=== PATIENT | female | born 1980 | race Caucasian/White ===

== ENCOUNTER 2018-05-13 04:06 | Emergency (ER) | payer OTHER ==
[~2018-05-13] VITALS: Ht 157.5 cm; Wt 59.1 kg
[~2018-05-13 04:06] MED LIST: ALBUTEROL0.83 MG/ML IH; AMOXICILLIN 50500 MG PO; IBUDONE PO; MOTRIN 800800 MG/TAB PO; NO HOME MEDICATIONS; NORCO 325 MG-101 TAB; NORCO 325 MG-7.1 TAB PO; NORCO PO; PHENERGAN W/CO120 ML PO; PREDNISONE 20MG20 MG PEG; PROVENTIL0.09 MG/A1 IH; ROBAXIN 50500 MG/TAB PO; ROBAXIN500 MG PO; ZITHROMAX Z PA250 MG PO
[2018-05-13 04:12] VITALS: TEMP 98.3
[2018-05-13 04:35] LABS: BASO # 0.1 (0.0-0.2); BASO % 0.6 % (0.0-2.0); EOS # 0.3 (0.0-0.7); EOS % 3.2 % (0-4.0); GRAN # 6.5 (1.4-6.5); GRAN % 67.5 % (42.2-75.2); HEMATOCRIT 46.2 % (37.0-47.0); HEMOGLOBIN 15.6 g/dl (12.5-16.0); LYMPH # 1.9 (1.2-3.4); MEAN CELL VOLUME 91 fl (80.0-100.0); MEAN CORPUSCULAR HEMOGLOBIN 31 pg (27.0-31.0); MEAN CORPUSCULAR HGB CONC 34 g/dl (33.0-37.0); MEAN PLATELET VOLUME 9.8 fl (7.4-10.4); MONO # 0.8 (0.1-0.6); MONO % 8.3 % (1.7-9.3); PLATELET COUNT 361 K/mm3 (130-400); RED BLOOD COUNT 5.07 M/mm3 (4.10-5.30); REDCELL DISTRIBUTION WIDTH-CV 13.1 % (11.5-14.5)
[2018-05-13 04:48] LABS: ALANINE AMINOTRANSFERASE 17 U/L (9-52); ALBUMIN 4.1 gm/dL (3.5-5.0); ALKALINE PHOSPHATASE 80 U/L (50-136); ANION GAP 6 mmol/L (7-16); AST,SGOT 16 U/L (15-37); BILIRUBIN,TOTAL 0.4 mg/dL (0.0-1.0); BLOOD UREA NITROGEN 14 mg/dL (7-17); CALCIUM 9.4 mg/dL (8.4-10.2); CARBON DIOXIDE 27 mmol/L (22-30); CHLORIDE 106 mmol/L (98-107); CREATININE, serum 0.84 mg/dL (0.52-1.25); GLUCOSE 101 mg/dL (74-106); LIPASE 156 U/L (23-300); POTASSIUM 4.1 mmol/L (3.4-5.0); SODIUM 139 mmol/L (137-145)
[2018-05-13] MEDS ORDERED: KLONOPIN 1MG1 MG PO (04:58)
[2018-05-13] MEDS ORDERED: FLEXERIL 1010 MG/TAB PO (04:58)
[2018-05-13] MEDS ORDERED: DAZIDOX20 MG PO (04:58)
[2018-05-13 04:59] LABS: C-REACTIVE PROTEIN < 0.5 mg/dL (0.0-0.9); TROPONIN-I < 0.012 ng/mL (0.000-0.034)
[2018-05-13 05:53] LABS: COLLECTION METHOD CLEAN CATCH
[2018-05-13 06:03] LABS: MUCOUS Present /lpf; PH 7 (5-8); URINE APPEARANCE Clear; URINE BACTERIA None Seen /hpf; URINE BILIRUBIN Negative (NEGATIVE); URINE BLOOD Negative (NEGATIVE); URINE COLOR Yellow; URINE GLUCOSE Negative (NEGATIVE); URINE KETONE Negative (NEGATIVE); URINE LEUKOCYTE ESTERASE Negative (NEGATIVE); URINE NITRATE Negative (NEGATIVE); URINE PROTEIN(semi-quant) Negative (NEGATIVE); URINE RBC 0-2 /hpf; URINE UROBILINOGEN Negative (NEGATIVE)
[2018-05-13 12:37] VITALS: BP 112/60; PULSE 88
== END 2018-05-13 12:38 | disposition home or self-care (01) ==
LOC: COL.ER 04:06
PROVIDERS: Emergency Medicine
DX: R10.11 Right upper quadrant pain (principal); F17.210 Nicotine dependence, cigarettes, uncomplicated; Z98.51 Tubal ligation status
CPT/HCPCS: J0780; J1170; J7030; Q9967

== ENCOUNTER 2018-06-14 21:14 | Emergency (ER) | payer SELFPAY ==
[~2018-06-14 21:14] MED LIST changes: +DAZIDOX20 MG PO; +FLEXERIL 1010 MG/TAB PO; +KLONOPIN 1MG1 MG PO
[2018-06-14 22:08] LABS: BASO # 0.1 (0.0-0.2); BASO % 0.4 % (0.0-2.0); EOS % 0.2 % (0-4.0); GRAN # 13.3 (1.4-6.5); GRAN % 79.8 % (42.2-75.2); HEMATOCRIT 44.9 % (37.0-47.0); HEMOGLOBIN 15.5 g/dl (12.5-16.0); LYMPH # 1.9 (1.2-3.4); LYMPH % 11.2 % (20.0-51.0); MEAN CELL VOLUME 91 fl (80.0-100.0); MEAN CORPUSCULAR HEMOGLOBIN 31 pg (27.0-31.0); MEAN CORPUSCULAR HGB CONC 35 g/dl (33.0-37.0); MEAN PLATELET VOLUME 9.6 fl (7.4-10.4); MONO # 1.3 (0.1-0.6); MONO % 8.1 % (1.7-9.3); PLATELET COUNT 355 K/mm3 (130-400); RED BLOOD COUNT 4.93 M/mm3 (4.10-5.30); REDCELL DISTRIBUTION WIDTH-CV 12.7 % (11.5-14.5)
[2018-06-14 22:21] LABS: ALANINE AMINOTRANSFERASE 17 U/L (9-52); ALBUMIN 4.2 gm/dL (3.5-5.0); ALKALINE PHOSPHATASE 93 U/L (50-136); ANION GAP 11 mmol/L (7-16); AST,SGOT 45 U/L (15-37); BILIRUBIN,TOTAL 1.1 mg/dL (0.0-1.0); BLOOD UREA NITROGEN 18 mg/dL (7-17); CALCIUM 9.4 mg/dL (8.4-10.2); CARBON DIOXIDE 26 mmol/L (22-30); CHLORIDE 100 mmol/L (98-107); GLUCOSE 98 mg/dL (74-106); POTASSIUM 4.2 mmol/L (3.4-5.0); SODIUM 137 mmol/L (137-145); TOTAL PROTEIN 7.4 gm/dL (6.4-8.2)
[2018-06-14 22:23] LABS: ACETAMINOPHEN < 10 ug/mL (10-30); ALCOHOL(ethanol),MEDICAL < 10 mg/dL; SALICYLATE < 1.0 mg/dL
[2018-06-14 22:24] VITALS: TEMP 97
[2018-06-14 23:25] LABS: COLLECTION METHOD CLEAN CATCH
[2018-06-14 23:37] LABS: MUCOUS Present /lpf; PH 5 (5-8); URINE APPEARANCE Cloudy; URINE BACTERIA None Seen /hpf; URINE BILIRUBIN Negative (NEGATIVE); URINE BLOOD 3+ (NEGATIVE); URINE COLOR Yellow; URINE GLUCOSE Negative (NEGATIVE); URINE KETONE 1+ (NEGATIVE); URINE LEUKOCYTE ESTERASE Negative (NEGATIVE); URINE NITRATE Negative (NEGATIVE); URINE PROTEIN(semi-quant) 2+ (NEGATIVE); URINE RBC >50 /hpf; URINE UROBILINOGEN Negative (NEGATIVE)
[2018-06-14 23:38] LABS: TRICYCLIC ANTIDEPRESS URINE NEGATIVE
[2018-06-15 11:38] VITALS: BP 122/86; PULSE 86
== END 2018-06-15 11:39 | disposition home or self-care (01) ==
LOC: COL.ER 21:14
PROVIDERS: Family Medicine
DX: F29 Unspecified psychosis not due to a substance or known physiological condition (principal); Z90.89 Acquired absence of other organs

== ENCOUNTER 2018-09-25 09:45 | Emergency (ER) | payer SELFPAY ==
[~2018-09-25] VITALS: Ht 152.4 cm; Wt 45.5 kg
[2018-09-25 09:51] VITALS: TEMP 98
[2018-09-25 11:00] LABS: COLLECTION METHOD RANDOM VOIDED
[2018-09-25 11:08] LABS: BASO # 0.1 (0.0-0.2); BASO % 0.6 % (0.0-2.0); EOS # 0.2 (0.0-0.7); EOS % 2.3 % (0-4.0); GRAN # 5.3 (1.4-6.5); GRAN % 61.8 % (42.2-75.2); HEMATOCRIT 46.3 % (37.0-47.0); HEMOGLOBIN 15.5 g/dl (12.5-16.0); LYMPH # 2.3 (1.2-3.4); MEAN CELL VOLUME 92 fl (80.0-100.0); MEAN CORPUSCULAR HEMOGLOBIN 31 pg (27.0-31.0); MEAN CORPUSCULAR HGB CONC 34 g/dl (33.0-37.0); MEAN PLATELET VOLUME 9.8 fl (7.4-10.4); MONO # 0.7 (0.1-0.6); PLATELET COUNT 323 K/mm3 (130-400); RED BLOOD COUNT 5.04 M/mm3 (4.10-5.30); REDCELL DISTRIBUTION WIDTH-CV 12.6 % (11.5-14.5)
[2018-09-25 11:11] LABS: MUCOUS Present /lpf; PH 5 (5-8); URINE APPEARANCE Hazy; URINE BACTERIA None Seen /hpf; URINE BILIRUBIN Negative (NEGATIVE); URINE BLOOD Negative (NEGATIVE); URINE COLOR Amber; URINE GLUCOSE Negative (NEGATIVE); URINE KETONE Trace (NEGATIVE); URINE LEUKOCYTE ESTERASE Negative (NEGATIVE); URINE NITRATE Negative (NEGATIVE); URINE PROTEIN(semi-quant) 1+ (NEGATIVE); URINE UROBILINOGEN Negative (NEGATIVE)
[2018-09-25 11:20] LABS: ALANINE AMINOTRANSFERASE 13 U/L (9-52); ALBUMIN 4.4 gm/dL (3.5-5.0); ALKALINE PHOSPHATASE 91 U/L (50-136); ANION GAP 13 mmol/L (7-16); AST,SGOT 24 U/L (15-37); BILIRUBIN,TOTAL 1.3 mg/dL (0.0-1.0); BLOOD UREA NITROGEN 16 mg/dL (7-17); CALCIUM 9.6 mg/dL (8.4-10.2); CARBON DIOXIDE 25 mmol/L (22-30); CHLORIDE 102 mmol/L (98-107); CREATININE, serum 0.75 (0.52-1.25); GLUCOSE 132 mg/dL (74-106); POTASSIUM 3.5 mmol/L (3.4-5.0); SODIUM 140 mmol/L (137-145); TOTAL PROTEIN 7.8 gm/dL (6.4-8.2)
[2018-09-25 11:21] LABS: ACETAMINOPHEN < 10 ug/mL (10-30); ALCOHOL(ethanol),MEDICAL < 10 mg/dL; SALICYLATE < 1.0 mg/dL
[2018-09-25 11:30] LABS: TRICYCLIC ANTIDEPRESS URINE NEGATIVE
[2018-09-25 22:31] VITALS: BP 102/66; PULSE 71
== END 2018-09-26 03:42 | disposition home or self-care (01) ==
LOC: COL.ER 09:45
PROVIDERS: Family Medicine
DX: R45.851 Suicidal ideations (principal); F15.10 Other stimulant abuse, uncomplicated; F32.9 Major depressive disorder, single episode, unspecified
CPT/HCPCS: J1200; J1630

== ENCOUNTER 2018-11-26 15:26 | Emergency (ER) | payer SELFPAY ==
[~2018-11-26] VITALS: Ht 157.5 cm; Wt 45.5 kg
[2018-11-26 15:42] VITALS: BP 134/97; TEMP 97.2
[2018-11-26 16:39] VITALS: PULSE 93
== END 2018-11-26 16:39 | disposition home or self-care (01) ==
LOC: COL.ER 15:26
DX: M54.5 Low back pain (principal); G89.29 Other chronic pain; F17.210 Nicotine dependence, cigarettes, uncomplicated; Z76.0 Encounter for issue of repeat prescription; Z98.51 Tubal ligation status; Z98.890 Other specified postprocedural states

== ENCOUNTER 2018-12-18 02:40 | Emergency (ER) | payer SELFPAY ==
[~2018-12-18] VITALS: Ht 152.4 cm; Wt 45.5 kg
[2018-12-18 03:26] LABS: BASO # 0.1 (0.0-0.2); BASO % 0.6 % (0.0-2.0); EOS # 0.1 (0.0-0.7); EOS % 1.1 % (0-4.0); GRAN # 7.6 (1.4-6.5); GRAN % 70.6 % (42.2-75.2); HEMOGLOBIN 17.5 g/dl (12.5-16.0); LYMPH # 2.2 (1.2-3.4); LYMPH % 20.7 % (20.0-51.0); MEAN CELL VOLUME 92 fl (80.0-100.0); MEAN CORPUSCULAR HEMOGLOBIN 31 pg (27.0-31.0); MEAN CORPUSCULAR HGB CONC 34 g/dl (33.0-37.0); MEAN PLATELET VOLUME 9.9 fl (7.4-10.4); MONO # 0.7 (0.1-0.6); MONO % 6.6 % (1.7-9.3); PLATELET COUNT 474 K/mm3 (130-400); RED BLOOD COUNT 5.67 M/mm3 (4.10-5.30); REDCELL DISTRIBUTION WIDTH-CV 13.4 % (11.5-14.5)
[2018-12-18 03:38] LABS: HEMATOCRIT 52.2 % (37.0-47.0)
[2018-12-18 03:40] LABS: ALANINE AMINOTRANSFERASE 10 U/L (9-52); ALKALINE PHOSPHATASE 97 U/L (50-136); ANION GAP 15 mmol/L (7-16); AST,SGOT 25 U/L (15-37); BILIRUBIN,TOTAL 0.6 mg/dL (0.0-1.0); BLOOD UREA NITROGEN 10 mg/dL (7-17); CALCIUM 10.4 mg/dL (8.4-10.2); CARBON DIOXIDE 24 mmol/L (22-30); CHLORIDE 105 mmol/L (98-107); CREATININE, serum 0.81 (0.52-1.25); GLUCOSE 129 mg/dL (74-106); LIPASE 118 U/L (23-300); POTASSIUM 3.3 mmol/L (3.4-5.0); SODIUM 145 mmol/L (137-145); TOTAL PROTEIN 8.8 gm/dL (6.4-8.2)
[2018-12-18 04:00] LABS: C-REACTIVE PROTEIN < 0.5 mg/dL (0.0-0.9)
[2018-12-18 04:39] LABS: COLLECTION METHOD CLEAN CATCH
[2018-12-18 04:52] LABS: MUCOUS Present /lpf; PH 5 (5-8); SQUAMOUS EPITHELIAL 20-50 /hpf; URINE APPEARANCE Cloudy; URINE BACTERIA Rare /hpf; URINE BILIRUBIN Negative (NEGATIVE); URINE BLOOD 3+ (NEGATIVE); URINE CALCIUM OXALATE CRYSTAL Present /hpf; URINE COLOR Amber; URINE GLUCOSE Negative (NEGATIVE); URINE KETONE Trace (NEGATIVE); URINE LEUKOCYTE ESTERASE Negative (NEGATIVE); URINE NITRATE Negative (NEGATIVE); URINE PROTEIN(semi-quant) 1+ (NEGATIVE)
[2018-12-18 06:43] LABS: TRICYCLIC ANTIDEPRESS URINE NEGATIVE
[2018-12-18 07:35] VITALS: TEMP 98.7
[2018-12-18] MEDS ORDERED: AMOXICILLIN 8751 TAB PO (07:50)
[2018-12-18 08:29] VITALS: BP 106/56; PULSE 82
[2018-12-18] MEDS ORDERED: PHENERGAN 25 TA25 MG PO (12:08)
[2018-12-18] MEDS ORDERED: ZOFRAN ODT8 MG PO (12:08)
== END 2018-12-18 09:16 | disposition home or self-care (01) ==
LOC: COL.ER 02:40
PROVIDERS: Emergency Medicine
DX: K52.9 Noninfective gastroenteritis and colitis, unspecified (principal); F17.210 Nicotine dependence, cigarettes, uncomplicated; Z98.51 Tubal ligation status; Z98.890 Other specified postprocedural states
CPT/HCPCS: A4216; J0696; J1630; J1885; J2270; J2405; J2550; J7030; Q9967

== ENCOUNTER 2018-12-18 11:53 | Inpatient (IN) | payer SELFPAY ==
[~2018-12-18] VITALS: Ht 165.1 cm; Wt 54.6 kg
[~2018-12-18 11:53] MED LIST changes: +AMOXICILLIN 8751 TAB PO
[2018-12-18] MEDS ORDERED: PHENERGAN 25 TA25 MG PO (12:08)
[2018-12-18] MEDS ORDERED: ZOFRAN ODT8 MG PO (12:08)
--- NOTE | 2018-12-18 13:40 | NUR ---
Attempted to draw lab left hand with minimal amount of blood return. Lab here and will draw.
[2018-12-18 14:27] LABS: BASO % 0.3 % (0.0-2.0); EOS % 0.1 % (0-4.0); GRAN # 9.8 (1.4-6.5); GRAN % 80.2 % (42.2-75.2); HEMATOCRIT 41.7 % (37.0-47.0); LYMPH # 1.5 (1.2-3.4); LYMPH % 12.3 % (20.0-51.0); MEAN CELL VOLUME 94 fl (80.0-100.0); MEAN CORPUSCULAR HGB CONC 33 g/dl (33.0-37.0); MEAN PLATELET VOLUME 10.3 fl (7.4-10.4); MONO # 0.8 (0.1-0.6); MONO % 6.8 % (1.7-9.3); RED BLOOD COUNT 4.44 M/mm3 (4.10-5.30); REDCELL DISTRIBUTION WIDTH-CV 13.8 % (11.5-14.5)
[2018-12-18 14:29] LABS: HEMOGLOBIN 13.8 g/dl (12.5-16.0); MEAN CORPUSCULAR HEMOGLOBIN 31 pg (27.0-31.0); PLATELET COUNT 297 K/mm3 (130-400)
[2018-12-18 14:38] LABS: ALBUMIN 3.5 gm/dL (3.5-5.0); BILIRUBIN,TOTAL 0.7 mg/dL (0.0-1.0); CALCIUM 8.4 mg/dL (8.4-10.2); CREATININE, serum 0.6 (0.52-1.25); POTASSIUM 4.3 mmol/L (3.4-5.0); TOTAL PROTEIN 6.4 gm/dL (6.4-8.2)
--- NOTE | 2018-12-18 16:30 | NUR ---
Pt admitted to medical unit rm 315 from ED, resting with eyes closed, awakes briefly to tactile stimuli, falls back to sleep quickly before answering any questions. IV to right hand/wrist patent without s/s of complications. Call light in reach. Bed alarm on.
[2018-12-18 16:35] VITALS: BP 113/57; PULSE 51; TEMP 97.9
[2018-12-18 19:41] VITALS: BP 152/85; PULSE 55; TEMP 99.1
--- NOTE | 2018-12-18 21:00 | NUR ---
Initial shift assessment done-nauseated, vomited small amount bile,acid. States abd pain 5/10- no pain meds ordered- states she needs the Dilaudid like she had in ER. Juliann CHRISTINE called-- pt given Dilaudid and Zofran IV as ordered- NPO. Tele on, LR at 75cc/hr
[2018-12-19] VITALS (8 sets, daily range): BP systolic 111–175; BP diastolic 57–88; PULSE 41–78; TEMP 97.9–99.1
[2018-12-19 06:06] LABS: BASO % 0.4 % (0.0-2.0); GRAN # 7.2 (1.4-6.5); GRAN % 75.7 % (42.2-75.2); HEMATOCRIT 41.2 % (37.0-47.0); HEMOGLOBIN 13.7 g/dl (12.5-16.0); LYMPH # 1.6 (1.2-3.4); LYMPH % 16.4 % (20.0-51.0); MEAN CELL VOLUME 93 fl (80.0-100.0); MEAN CORPUSCULAR HEMOGLOBIN 31 pg (27.0-31.0); MEAN CORPUSCULAR HGB CONC 33 g/dl (33.0-37.0); MEAN PLATELET VOLUME 10.1 fl (7.4-10.4); MONO # 0.7 (0.1-0.6); PLATELET COUNT 320 K/mm3 (130-400); RED BLOOD COUNT 4.43 M/mm3 (4.10-5.30); REDCELL DISTRIBUTION WIDTH-CV 13.6 % (11.5-14.5)
[2018-12-19 06:18] LABS: CALCIUM 8.8 mg/dL (8.4-10.2); CREATININE, serum 0.62 (0.52-1.25); MAGNESIUM 1.7 mg/dL (1.6-2.3); POTASSIUM 3.8 mmol/L (3.4-5.0)
--- NOTE | 2018-12-19 06:34 | NUR ---
Has received Zofran x2 for nausea, and Dilaudid IV x3 for abd pain- no stools during this shift. IV fluids of LR at 75cc/hr.
--- NOTE | 2018-12-19 09:03 | NUR ---
DAVON met with the patient to discuss a discharge plan. The pt lives in [place] with her mom and dad. The pt does not use DME and reports independence with ADLs. The pt's PCP is Dr. Lares from [facility] but would like to find a local doctor. SW provided list of [facility] providers. The pt receives her medication from [facility] with no difficulties. The pt is self-pay. DAVON contacted Katiana, financial counselor. will provide financial assistance application to the pt. The pt does not have advanced directives in the EMR but was interested in obtaining a DPOA-HC form. The pt plans to return home upon discharge with her mom providing transporatation. There are no additional needs at this time.
--- NOTE | 2018-12-19 17:46 | NUR ---
PT HAS BEEN NAUSEATED AND HAD C/O PAIN THROUGHOUT SHIFT. ADMINISTERED ZOFRAN WITHOUT MUCH IMPROVEMENT. PHENAGREN WAS ADMISITERED, PT WAS ABLE TO TAKE A NAP AFTER MED WAS ADMINSTERED. PAIN MEDS WHERE CHANGED A COUPLE TIMES THIS SHIFT DUE TO PT NOT GETTING ANY RELIEF FROM PAIN. ECHO WAS OBTAINED THIS AM. DIET ADVANCED TO CLEAR LIQUIDS, PT HAS BEEN MAINLY DRINKING SODA BUT HASNT EATEN MUCH CLEAR LIQUID FOODS. NO C/O LOOSE STOOLS TO COLLECT FOR STOOL SAMPLE. PT HAS BEEN CHILLED, ROOM TEMP ADJUSTED AND PROVIDED PT WITH WARM BLANKETS NEEDED, NO NOTED ELEVATED TEMPS. PT HAS TAKEN 2 SHOWERS THIS SHIFT PER REQUEST IN ORDER TO TRY TO WARM UP AND SEE IF SHE WOULD FEEL BETTER AFTERWARDS. TELE CALLED ONCE STATING THAT PT WAS SHANNAN TO 39, PT WAS TAKING AFTERNOON NAP AT THAT TIME.
--- NOTE | 2018-12-19 20:53 | NUR ---
Report received from JUAN CARLOS Tillman. Patient nauseated and vomiting. Patient requests PRN zofran and nallely. Not due until 2129. Reporting pain 7/10 in stomach. IV patent in left hand, fluids running at 75. Vitals signs within normal limits. Patient only request other than pain and zofran is a warm blanket. On tele, normal sinus rhythm. Call light within reach.
--- NOTE | 2018-12-19 21:32 | NUR ---
Patient requests for zofran and nallely. PRN zofran and nallely given at this time. Will reassess as needed. Warm blanket provided to patient.
--- NOTE | 2018-12-20 03:38 | NUR ---
PRN dose of Tara given at this time for pain rated 6/10 in her stomach.
[2018-12-20 03:43] VITALS: BP 153/82; PULSE 50; TEMP 98.8
--- NOTE | 2018-12-20 05:51 | NUR ---
Patient had nausea/vomiting throughout shift. PRN zofran and nallely given. Between zofran doses, PRN phenergan given. Call light within reach.
--- NOTE | 2018-12-20 06:34 | NUR ---
Report given to JUAN CARLOS Tillman.
[2018-12-20 07:03] LABS: BASO % 0.5 % (0.0-2.0); EOS % 0.5 % (0-4.0); GRAN # 5.2 (1.4-6.5); GRAN % 61.4 % (42.2-75.2); HEMATOCRIT 42.1 % (37.0-47.0); LYMPH # 2.5 (1.2-3.4); LYMPH % 29.7 % (20.0-51.0); MEAN CELL VOLUME 93 fl (80.0-100.0); MEAN CORPUSCULAR HEMOGLOBIN 31 pg (27.0-31.0); MEAN CORPUSCULAR HGB CONC 33 g/dl (33.0-37.0); MEAN PLATELET VOLUME 9.9 fl (7.4-10.4); MONO # 0.6 (0.1-0.6); MONO % 7.4 % (1.7-9.3); PLATELET COUNT 323 K/mm3 (130-400); RED BLOOD COUNT 4.53 M/mm3 (4.10-5.30); REDCELL DISTRIBUTION WIDTH-CV 13.2 % (11.5-14.5)
[2018-12-20 07:15] LABS: CALCIUM 8.8 mg/dL (8.4-10.2); CREATININE, serum 0.68 (0.52-1.25); POTASSIUM 3.1 mmol/L (3.4-5.0)
[2018-12-20 07:19] VITALS: BP 103/55; PULSE 57; TEMP 98.5
--- NOTE | 2018-12-20 07:45 | NUR ---
PT REQUESTED ZOFRAN FROM [facility]. ADMISNTERED MED. PT ASKED ABOUT PAIN MEDS, INFORMED THAT IT WASNT QUITE TIME BUT I WOULD ADMIN AT TIME IT WAS DUE.
--- NOTE | 2018-12-20 08:15 | NUR ---
PT REQUESTED ADVANCING DIET IN ORDER TO EAT PANCAKES. STATED THE SHE WAS CRAVING PANCAKES. WILL TALK TO PROVIDER AND SEE IF WE CAN ADVANCE DIET.
--- NOTE | 2018-12-20 10:00 | NUR ---
PT WAS ABLE TO TOLERATE EATING PANCAKES WITHOUT NAUSEA. FEELS WELL ENOUGH TO DISCHARGE. NOTIFIED MERI TO INPUT ORDERS FOR DISCHARGE NO OTHER ISSUES VOICED AT THIS TIME.
[2018-12-20] MEDS ORDERED: PHENERGAN 25 TA25 MG PO (10:22)
[2018-12-20] MEDS ORDERED: DAZIDOX20 MG PO (10:23)
[2018-12-20] MEDS ORDERED: FLAGYL500 MG PO (10:25)
[2018-12-20] MEDS ORDERED: CIPRO 500MG TA500 MG PO (10:26)
[2018-12-20] MEDS ORDERED: PROBIOTIC ACID1 EAC3 PO (10:42)
--- NOTE | 2018-12-20 10:44 | NUR ---
DAVON attended clinical rounds. The patient is to discharge back home with her parent's today, 12/20. DAVON then followed up with the patient to discuss local primary care options. The patient was interested in being set up at the [facility] in [place]. DAVON contacted Leila at [facility] and scheduled the patient an appointment for 01/14 at 1445. DAVON faxed the patient's medical records to [facility]. DAVON informed the patient's PA-C and the equal employment opportunity officer. DAVON informed the patient and provided her with [facility]'s registration packet. The patient had no other questions or concerns. No additional needs at this time.
--- NOTE | 2018-12-20 13:20 | NUR ---
PT ATTEMPTED TO DRINK SOME CHOCOLATE MILK, STATED IT GAVE HER A LITTLE BIT OF NAUSEA AND WONDERED IF SHE COULD GET SOME PHENERGAN BEFORE DISHARGING. THIS NURSE RECIEVED MED FROM PHARMACY AND STARTED IV INFUSION. ASKED ABOUT GETTING OXYCODONE PRIOR TO GOING HOME, INFORMED THAT IT WAS TO SOON TO ADMIN, AND THEN BY THE TIME SHE GOT IT FROM PHARMACY AFTER DISCHARGE IT WOULD BE TIME TO TAKE IT. DISCHARGE PAPERWORK WENT OVER WITH PATIENT, SIGNATURES OBTAINED.
--- NOTE | 2018-12-20 13:30 | NUR ---
PT CALLED THIS NURSE STATED THAT SHE THINKS HER IV WAS INFILTERATING. THIS NURSE STOPPED IV INFUSING AND REMOVED IV SITE. NOTED REDNESS TO AREA. PROVIDED PT WITH SOME ICE TO APPLY TO SITE.
--- NOTE | 2018-12-20 13:40 | NUR ---
THIS NURSE ESCORTED PT OUT OF FACILITY. PT FATHER ESCORTING WELL, PROVIDING RIDE HOME. NO QUESTIONS VOICED.
== END 2018-12-20 13:40 | disposition home or self-care (01) | DRG 871 ==
LOC: COL.ER 11:53 → MEDICAL 15:21
PROVIDERS: Emergency Medicine; Physician Assistant; ADMIT Student in an Organized Health Care Education/Training Program
DX: A41.9 Sepsis, unspecified organism (principal); G92 Toxic encephalopathy; E87.2 Acidosis; K52.9 Noninfective gastroenteritis and colitis, unspecified; T40.2X5A Adverse effect of other opioids, initial encounter; T42.6X5A Adverse effect of other antiepileptic and sedative-hypnotic drugs, initial encounter; T43.4X5A Adverse effect of butyrophenone and thiothixene neuroleptics, initial encounter; T42.4X5A Adverse effect of benzodiazepines, initial encounter; M54.9 Dorsalgia, unspecified; G89.29 Other chronic pain; F41.9 Anxiety disorder, unspecified; F17.210 Nicotine dependence, cigarettes, uncomplicated; R00.1 Bradycardia, unspecified
CPT/HCPCS: 99223-AI; 99232-AI; 99239; J0744; J1170; J1630; J1650; J2060; J2405; J2550; J7030; J7120

== ENCOUNTER 2019-02-16 07:37 | Emergency (ER) | payer SELFPAY ==
[~2019-02-16] VITALS: Ht 157.5 cm; Wt 45.5 kg
[~2019-02-16 07:37] MED LIST changes: +CIPRO 500MG TA500 MG PO; +FLAGYL500 MG PO; +PHENERGAN 25 TA25 MG PO; +PROBIOTIC ACID1 EAC3 PO; +ZOFRAN ODT8 MG PO
[2019-02-16 07:46] VITALS: TEMP 96.8
[2019-02-16 08:18] LABS: BASO # 0.1 (0.0-0.2); BASO % 0.5 % (0.0-2.0); EOS # 0.1 (0.0-0.7); EOS % 0.6 % (0-4.0); GRAN # 9.7 (1.4-6.5); GRAN % 82.6 % (42.2-75.2); HEMATOCRIT 51.8 % (37.0-47.0); HEMOGLOBIN 17.1 g/dl (12.5-16.0); LYMPH # 1.4 (1.2-3.4); LYMPH % 12.2 % (20.0-51.0); MEAN CELL VOLUME 94 fl (80.0-100.0); MEAN CORPUSCULAR HEMOGLOBIN 31 pg (27.0-31.0); MEAN CORPUSCULAR HGB CONC 33 g/dl (33.0-37.0); MEAN PLATELET VOLUME 9.9 fl (7.4-10.4); MONO # 0.4 (0.1-0.6); MONO % 3.7 % (1.7-9.3); PLATELET COUNT 349 K/mm3 (130-400); RED BLOOD COUNT 5.51 M/mm3 (4.10-5.30); REDCELL DISTRIBUTION WIDTH-CV 12.7 % (11.5-14.5)
[2019-02-16 08:30] LABS: ALANINE AMINOTRANSFERASE < 6 U/L (9-52); ALBUMIN 5.3 gm/dL (3.5-5.0); ALKALINE PHOSPHATASE 95 U/L (50-136); ANION GAP 14 mmol/L (7-16); AST,SGOT 25 U/L (15-37); BILIRUBIN,TOTAL 1.2 mg/dL (0.0-1.0); BLOOD UREA NITROGEN 16 mg/dL (7-17); CALCIUM 10.1 mg/dL (8.4-10.2); CARBON DIOXIDE 23 mmol/L (22-30); CHLORIDE 107 mmol/L (98-107); CREATININE, serum 0.67 (0.52-1.25); GLUCOSE 122 mg/dL (74-106); LIPASE 64 U/L (23-300); SODIUM 144 mmol/L (137-145); TOTAL PROTEIN 9.1 gm/dL (6.4-8.2)
[2019-02-16 08:35] LABS: C-REACTIVE PROTEIN < 0.5 mg/dL (0.0-0.9)
[2019-02-16 09:06] LABS: COLLECTION METHOD CLEAN CATCH
[2019-02-16 09:20] LABS: MUCOUS Present /lpf; PH 5 (5-8); URINE APPEARANCE Clear; URINE BACTERIA Rare /hpf; URINE BILIRUBIN Negative (NEGATIVE); URINE BLOOD 2+ (NEGATIVE); URINE COLOR Yellow; URINE GLUCOSE 1+ (NEGATIVE); URINE KETONE Trace (NEGATIVE); URINE LEUKOCYTE ESTERASE Negative (NEGATIVE); URINE NITRATE Negative (NEGATIVE); URINE PROTEIN(semi-quant) 1+ (NEGATIVE); URINE RBC 20-50 /hpf; URINE UROBILINOGEN Negative (NEGATIVE)
[2019-02-16 09:24] LABS: TRICYCLIC ANTIDEPRESS URINE NEGATIVE
[2019-02-16] MEDS ORDERED: ZOFRAN ODT4 MG PO (09:35)
[2019-02-16 11:35] VITALS: BP 152/97; PULSE 68
== END 2019-02-16 11:48 | disposition home or self-care (01) ==
LOC: COL.ER 07:37
PROVIDERS: Emergency Medicine
DX: R10.9 Unspecified abdominal pain (principal); F17.210 Nicotine dependence, cigarettes, uncomplicated; Z98.51 Tubal ligation status; Z98.890 Other specified postprocedural states
CPT/HCPCS: J2060; J2270; J2405; J2765; J7030

== ENCOUNTER 2019-02-16 15:08 | Emergency (ER) | payer SELFPAY ==
[~2019-02-16] VITALS: Ht 157.5 cm; Wt 54.5 kg
[~2019-02-16 15:08] MED LIST changes: +ZOFRAN ODT4 MG PO
[2019-02-16 15:18] VITALS: PULSE 82; TEMP 97.2
[2019-02-16 17:34] VITALS: BP 159/92
== END 2019-02-16 17:45 | disposition home or self-care (01) ==
LOC: COL.ER 15:08
DX: R11.2 Nausea with vomiting, unspecified (principal); R10.9 Unspecified abdominal pain; F17.210 Nicotine dependence, cigarettes, uncomplicated; Z98.51 Tubal ligation status; Z98.890 Other specified postprocedural states
CPT/HCPCS: J0780; J2060; J7030; Q9967

== ENCOUNTER 2020-02-02 20:47 | Emergency (ER) | payer SELFPAY ==
[~2020-02-02] VITALS: Ht 149.9 cm; Wt 47.7 kg
[2020-02-02 20:55] VITALS: BP 137/111; TEMP 98.2
[2020-02-02 22:05] LABS: COLLECTION METHOD CLEAN CATCH
[2020-02-02 22:16] LABS: MUCOUS Present /lpf; PH 5 (5-8); URINE APPEARANCE Hazy; URINE BACTERIA None Seen /hpf; URINE BILIRUBIN Negative (NEGATIVE); URINE BLOOD 1+ (NEGATIVE); URINE COLOR Yellow; URINE GLUCOSE Negative (NEGATIVE); URINE KETONE 1+ (NEGATIVE); URINE LEUKOCYTE ESTERASE Negative (NEGATIVE); URINE NITRATE Negative (NEGATIVE); URINE PROTEIN(semi-quant) Negative (NEGATIVE); URINE UROBILINOGEN Negative (NEGATIVE)
[2020-02-02 22:18] LABS: TRICYCLIC ANTIDEPRESS URINE NEGATIVE
[2020-02-02 23:49] LABS: BASO % 0.3 % (0.0-2.0); EOS # 0.2 (0.0-0.7); EOS % 1.3 % (0-4.0); GRAN # 9.4 (1.4-6.5); GRAN % 71.5 % (42.2-75.2); HEMATOCRIT 39.3 % (37.0-47.0); HEMOGLOBIN 13.4 g/dl (12.5-16.0); LYMPH # 2.5 (1.2-3.4); LYMPH % 19.1 % (20.0-51.0); MEAN CELL VOLUME 90 fl (80.0-100.0); MEAN CORPUSCULAR HEMOGLOBIN 31 pg (27.0-31.0); MEAN CORPUSCULAR HGB CONC 34 g/dl (33.0-37.0); MEAN PLATELET VOLUME 10.1 fl (7.4-10.4); MONO % 7.4 % (1.7-9.3); PLATELET COUNT 304 K/mm3 (130-400); RED BLOOD COUNT 4.36 M/mm3 (4.10-5.30)
[2020-02-03 00:07] LABS: ALANINE AMINOTRANSFERASE 10 U/L (4-34); ALKALINE PHOSPHATASE 90 U/L (50-136); ANION GAP 8 mmol/L (7-16); AST,SGOT 38 U/L (15-37); BILIRUBIN,TOTAL 0.8 mg/dL (0.0-1.0); BLOOD UREA NITROGEN 13 mg/dL (7-17); CALCIUM 9.6 mg/dL (8.4-10.2); CARBON DIOXIDE 22 mmol/L (22-30); CHLORIDE 105 mmol/L (98-107); CREATININE, serum 0.68 (0.52-1.25); GLUCOSE 102 mg/dL (74-106); POTASSIUM 3.6 mmol/L (3.4-5.0); SODIUM 135 mmol/L (137-145); TOTAL PROTEIN 6.8 gm/dL (6.4-8.2)
[2020-02-03 00:23] LABS: ACETAMINOPHEN < 10 ug/mL (10-30); ALCOHOL(ethanol),MEDICAL < 10 mg/dL; SALICYLATE < 1.0 mg/dL
[2020-02-03 13:42] VITALS: PULSE 100
== END 2020-02-03 10:38 | disposition home or self-care (01) ==
LOC: COL.ER 20:47
PROVIDERS: Emergency Medicine
DX: F15.10 Other stimulant abuse, uncomplicated (principal); F17.210 Nicotine dependence, cigarettes, uncomplicated
CPT/HCPCS: J1630; J2060

== ENCOUNTER 2021-04-08 21:02 | Emergency (ER) | payer SELFPAY ==
[2021-04-08 21:09] LABS: COLLECTION METHOD CLEAN CATCH
[2021-04-08 21:21] LABS: MUCOUS Present (NOT PRESENT); PH 5 (5-8); URINE APPEARANCE Hazy (CLEAR/HAZY); URINE BACTERIA Rare (NONE SEEN); URINE BILIRUBIN Negative (NEGATIVE); URINE BLOOD Negative (NEGATIVE); URINE COLOR Yellow (YELLOW); URINE GLUCOSE Negative (NEGATIVE); URINE KETONE Trace (NEGATIVE); URINE LEUKOCYTE ESTERASE Negative (NEGATIVE); URINE NITRATE Negative (NEGATIVE); URINE PROTEIN(semi-quant) Negative (NEGATIVE)
[2021-04-08 21:25] LABS: TRICYCLIC ANTIDEPRESS URINE NEGATIVE
[2021-04-08 22:28] VITALS: BP 127/69
[2021-04-08 22:34] LABS: BASO % 0.5 % (0.0-2.0); EOS # 0.3 K/mm3 (0.0-0.7); EOS % 3.3 % (0-4.0); GRAN % 61.2 % (42.2-75.2); HEMOGLOBIN 12.4 g/dl (12.5-16.0); LYMPH # 2.2 K/mm3 (1.2-3.4); LYMPH % 26.9 % (20.0-51.0); MEAN CELL VOLUME 90 fl (80.0-100.0); MEAN CORPUSCULAR HEMOGLOBIN 30 pg (27.0-31.0); MEAN CORPUSCULAR HGB CONC 33 g/dl (33.0-37.0); MEAN PLATELET VOLUME 9.5 fl (7.4-10.4); MONO # 0.6 K/mm3 (0.1-0.6); MONO % 7.9 % (1.7-9.3); PLATELET COUNT 365 K/mm3 (130-400); RED BLOOD COUNT 4.21 M/mm3 (4.10-5.30)
[2021-04-08 22:51] LABS: ACETAMINOPHEN < 1.0 ug/mL (10-30); ALANINE AMINOTRANSFERASE 13 U/L (0-55); ALBUMIN 3.7 gm/dL (3.5-5.0); ALCOHOL(ethanol),MEDICAL < 10 mg/dL (0-10); ALKALINE PHOSPHATASE 82 U/L (40-150); ANION GAP 11 mmol/L (7-16); AST,SGOT 19 U/L (5-34); BILIRUBIN,TOTAL 0.9 mg/dL (0.2-1.2); BLOOD UREA NITROGEN 4 mg/dL (7-19); CALCIUM 8.6 mg/dL (8.4-10.2); CARBON DIOXIDE 20 mmol/L (22-29); CHLORIDE 108 mmol/L (98-107); CREATININE, serum 0.79 mg/dL (0.57-1.11); GLUCOSE 109 mg/dL (70-99); POTASSIUM 3.4 mmol/L (3.5-4.5); SALICYLATE < 5.0 mg/dL (15.0-30.0); SODIUM 139 mmol/L (136-145); TOTAL PROTEIN 6.4 gm/dL (6.2-8.1)
--- NOTE | 2021-04-09 10:19 | NUR ---
DAVON consulted for patient who needs placement and is homeless. DAVON staffed with nurse about patient. Patient came in intoxicated, patients levels are down and sw magaly talk with patient about options. Officer present to let patient know that she has a no-contact order against other placement options. Notified patient of the local retirement. Patient reports that she is okay with this option. SW called , rep stated that they have a pendning DC and can call back in 20 minutes to make sure that there is a space for the patient. Awaiting call. Notifed patient. Patient is okay with this options. Will F>U
[2021-04-09 10:55] VITALS: PULSE 87
== END 2021-04-09 10:55 | disposition home or self-care (01) ==
LOC: COL.ER 21:02
PROVIDERS: Emergency Medicine
DX: F15.129 Other stimulant abuse with intoxication, unspecified (principal)
CPT/HCPCS: J1200; J1630; J2060

== ENCOUNTER 2021-08-26 13:31 | Emergency (ER) | payer SELFPAY ==
[~2021-08-26] VITALS: Ht 157.5 cm; Wt 58.2 kg
[2021-08-26 14:41] LABS: BASO # 0.1 K/mm3 (0.0-0.2); BASO % 0.6 % (0.0-2.0); EOS # 0.3 K/mm3 (0.0-0.7); EOS % 2.7 % (0.0-4.0); GRAN # 8.8 K/mm3 (1.4-6.5); GRAN % 73.4 % (42.2-75.2); HEMATOCRIT 41.9 % (37.0-47.0); HEMOGLOBIN 13.9 g/dl (12.5-16.0); LYMPH # 1.8 K/mm3 (1.2-3.4); LYMPH % 14.6 % (20.0-51.0); MEAN CELL VOLUME 90 fl (80.0-100.0); MEAN CORPUSCULAR HEMOGLOBIN 30 pg (27-31); MEAN CORPUSCULAR HGB CONC 33 g/dl (33.0-37.0); MEAN PLATELET VOLUME 9.8 fl (7.4-10.4); MONO % 8.2 % (1.7-9.3); PLATELET COUNT 389 K/mm3 (130-400); RED BLOOD COUNT 4.64 M/mm3 (4.10-5.30); REDCELL DISTRIBUTION WIDTH-CV 14.7 % (11.5-14.5)
[2021-08-26 14:54] LABS: COLLECTION METHOD CLEAN CATCH
[2021-08-26 14:57] LABS: ALANINE AMINOTRANSFERASE 13 U/L (0-55); ALBUMIN 3.9 gm/dL (3.5-5.0); ALKALINE PHOSPHATASE 99 U/L (40-150); ANION GAP 9 mmol/L (7-16); AST,SGOT 16 U/L (5-34); BILIRUBIN,TOTAL 0.6 mg/dL (0.2-1.2); BLOOD UREA NITROGEN 12 mg/dL (7-19); CALCIUM 9.1 mg/dL (8.4-10.2); CARBON DIOXIDE 25 mmol/L (22-29); CHLORIDE 108 mmol/L (98-107); CREATININE, serum 1.05 mg/dL (0.57-1.11); GLUCOSE 104 mg/dL (70-99); POTASSIUM 4.5 mmol/L (3.5-4.5); SODIUM 142 mmol/L (136-145); TOTAL PROTEIN 7.2 gm/dL (6.2-8.1)
[2021-08-26 15:02] LABS: ACETAMINOPHEN < 1.0 ug/mL (10-30); ALCOHOL(ethanol),MEDICAL < 10 mg/dL (0-10); SALICYLATE < 5.0 mg/dL (15.0-30.0)
[2021-08-26 15:17] LABS: TRICYCLIC ANTIDEPRESS URINE NEGATIVE
[2021-08-26 15:28] LABS: MUCOUS Present (NOT PRESENT); PH 6 (5-8); URINE APPEARANCE Cloudy (CLEAR/HAZY); URINE BACTERIA Rare /hpf (NONE SEEN); URINE BILIRUBIN Negative (NEGATIVE); URINE BLOOD 2+ (NEGATIVE); URINE COLOR Yellow (YELLOW); URINE GLUCOSE Negative (NEGATIVE); URINE KETONE Negative (NEGATIVE); URINE LEUKOCYTE ESTERASE Negative (NEGATIVE); URINE NITRATE Negative (NEGATIVE); URINE PROTEIN(semi-quant) Negative (NEGATIVE); URINE RBC 0-2 /hpf (0-2); URINE UROBILINOGEN Negative (NEGATIVE)
[2021-08-27 19:10] VITALS: BP 136/77; PULSE 103; TEMP 97.8
== END 2021-08-27 19:12 | disposition home or self-care (01) ==
LOC: COL.ER 13:31
PROVIDERS: Physician Assistant
DX: F15.10 Other stimulant abuse, uncomplicated (principal); F23 Brief psychotic disorder; F17.210 Nicotine dependence, cigarettes, uncomplicated
CPT/HCPCS: J1630; J2060

== ENCOUNTER 2021-09-15 19:28 | Emergency (ER) | payer SELFPAY ==
[~2021-09-15] VITALS: Ht 162.6 cm; Wt 54.5 kg
[2021-09-15 19:41] VITALS: TEMP 97.4
[2021-09-15 19:53] LABS: COLLECTION METHOD CLEAN CATCH
[2021-09-15 20:00] LABS: HEMATOCRIT 42.4 % (37.0-47.0); MEAN CELL VOLUME 90 fl (80.0-100.0); MEAN CORPUSCULAR HEMOGLOBIN 30 pg (27-31); MEAN CORPUSCULAR HGB CONC 33 g/dl (33.0-37.0); MEAN PLATELET VOLUME 10.2 fl (7.4-10.4); PLATELET COUNT 395 K/mm3 (130-400); RED BLOOD COUNT 4.71 M/mm3 (4.10-5.30); REDCELL DISTRIBUTION WIDTH-CV 14.8 % (11.5-14.5)
[2021-09-15 20:02] LABS: MUCOUS Present (NOT PRESENT); PH 5 (5-8); URINE APPEARANCE Cloudy (CLEAR/HAZY); URINE BACTERIA None Seen /hpf (NONE SEEN); URINE BILIRUBIN Negative (NEGATIVE); URINE BLOOD 3+ (NEGATIVE); URINE CALCIUM OXALATE CRYSTAL Present (NOT PRESENT); URINE COLOR Yellow (YELLOW); URINE GLUCOSE Negative (NEGATIVE); URINE KETONE Negative (NEGATIVE); URINE LEUKOCYTE ESTERASE Negative (NEGATIVE); URINE NITRATE Negative (NEGATIVE); URINE PROTEIN(semi-quant) Negative (NEGATIVE); URINE RBC >50 /hpf (0-2)
[2021-09-15 20:14] LABS: ACETAMINOPHEN < 1.0 ug/mL (10-30); ALANINE AMINOTRANSFERASE 14 U/L (0-55); ALBUMIN 4.2 gm/dL (3.5-5.0); ALCOHOL(ethanol),MEDICAL < 10 mg/dL (0-10); ALKALINE PHOSPHATASE 93 U/L (40-150); ANION GAP 12 mmol/L (7-16); AST,SGOT 20 U/L (5-34); BILIRUBIN,TOTAL 0.5 mg/dL (0.2-1.2); BLOOD UREA NITROGEN 16 mg/dL (7-19); CALCIUM 9.3 mg/dL (8.4-10.2); CARBON DIOXIDE 25 mmol/L (22-29); CHLORIDE 108 mmol/L (98-107); CREATININE, serum 0.99 mg/dL (0.57-1.11); GLUCOSE 87 mg/dL (70-99); POTASSIUM 3.8 mmol/L (3.5-4.5); SALICYLATE < 5.0 mg/dL (15.0-30.0); SODIUM 145 mmol/L (136-145); TOTAL PROTEIN 7.3 gm/dL (6.2-8.1)
[2021-09-15 20:16] LABS: BAND 1 % (0-10); EOSINOPHIL 3 % (0-4); LYMPHOCYTE 19 % (20.0-51.0); NEUTROPHILS 70 % (42.0-75.2)
[2021-09-15 20:17] LABS: PLATELET ESTIMATE NORMAL (NORMAL)
[2021-09-15 20:25] LABS: TRICYCLIC ANTIDEPRESS URINE NEGATIVE
[2021-09-15 20:34] LABS: TSH w REFLEX 1.335 uIU/mL (0.350-4.940)
[2021-09-16 08:22] VITALS: BP 134/75; PULSE 101
== END 2021-09-16 08:22 | disposition home or self-care (01) ==
LOC: COL.ER 19:28
PROVIDERS: Student in an Organized Health Care Education/Training Program
DX: F23 Brief psychotic disorder (principal); Z20.822 Contact with and (suspected) exposure to COVID-19

== ENCOUNTER 2021-09-20 17:29 | Emergency (ER) | payer SELFPAY ==
[~2021-09-20] VITALS: Ht 167.6 cm; Wt 55.5 kg
[2021-09-20 17:36] VITALS: BP 138/91; PULSE 83; TEMP 98.6
[2021-09-20 18:10] LABS: BASO # 0.1 K/mm3 (0.0-0.2); BASO % 0.6 % (0.0-2.0); EOS # 0.2 K/mm3 (0.0-0.7); EOS % 2.6 % (0.0-4.0); GRAN # 5.6 K/mm3 (1.4-6.5); GRAN % 60.4 % (42.2-75.2); HEMATOCRIT 39.4 % (37.0-47.0); HEMOGLOBIN 12.9 g/dl (12.5-16.0); LYMPH # 2.5 K/mm3 (1.2-3.4); LYMPH % 27.1 % (20.0-51.0); MEAN CELL VOLUME 91 fl (80.0-100.0); MEAN CORPUSCULAR HEMOGLOBIN 30 pg (27-31); MEAN CORPUSCULAR HGB CONC 33 g/dl (33.0-37.0); MEAN PLATELET VOLUME 9.8 fl (7.4-10.4); MONO # 0.8 K/mm3 (0.1-0.6); PLATELET COUNT 364 K/mm3 (130-400); RED BLOOD COUNT 4.34 M/mm3 (4.10-5.30); REDCELL DISTRIBUTION WIDTH-CV 14.7 % (11.5-14.5)
[2021-09-20 18:29] LABS: ALANINE AMINOTRANSFERASE 11 U/L (0-55); ALBUMIN 3.7 gm/dL (3.5-5.0); ALKALINE PHOSPHATASE 85 U/L (40-150); ANION GAP 10 mmol/L (7-16); AST,SGOT 18 U/L (5-34); BILIRUBIN,TOTAL 0.3 mg/dL (0.2-1.2); BLOOD UREA NITROGEN 11 mg/dL (7-19); CALCIUM 8.6 mg/dL (8.4-10.2); CARBON DIOXIDE 24 mmol/L (22-29); CHLORIDE 107 mmol/L (98-107); CREATININE, serum 1.01 mg/dL (0.57-1.11); GLUCOSE 119 mg/dL (70-99); POTASSIUM 3.5 mmol/L (3.5-4.5); SODIUM 141 mmol/L (136-145); TOTAL PROTEIN 6.7 gm/dL (6.2-8.1)
[2021-09-20 18:35] LABS: ALCOHOL(ethanol),MEDICAL < 10 mg/dL (0-10); SALICYLATE < 5.0 mg/dL (15.0-30.0)
== END 2021-09-20 21:19 | disposition home or self-care (01) ==
LOC: COL.ER 17:29
PROVIDERS: Physician Assistant
DX: F60.9 Personality disorder, unspecified (principal); R44.3 Hallucinations, unspecified; Z86.59 Personal history of other mental and behavioral disorders; Z28.310 Unvaccinated for COVID-19
CPT/HCPCS: J1790

== ENCOUNTER 2023-11-21 20:16 | Emergency (ER) | payer SELFPAY ==
[~2023-11-21] VITALS: Ht 160 cm; Wt 53.4 kg
[~2023-11-21 20:16] MED LIST changes: +ATIVAN 0.50.5 MG/TAB PO; +CELEXA 20MG20 MG/TAB PO; +CEPHALEXIN500 M1 PO; +DESYREL 100MG100 MG PO
[2023-11-21 20:28] VITALS: TEMP 98
[2023-11-21 20:52] VITALS: BP 126/88; PULSE 80
[2023-11-21 21:57] LABS: BASO # 0.1 K/mm3 (0.0-0.2); BASO % 0.6 % (0.0-2.0); EOS # 0.5 K/mm3 (0.0-0.7); EOS % 4.1 % (0.0-4.0); GRAN # 6.8 K/mm3 (1.4-6.5); GRAN % 61.4 % (42.2-75.2); HEMATOCRIT 39.7 % (37.0-47.0); LYMPH # 2.7 K/mm3 (1.2-3.4); LYMPH % 23.9 % (20.0-51.0); MEAN CELL VOLUME 92 fl (80.0-100.0); MEAN CORPUSCULAR HEMOGLOBIN 30 pg (27-31); MEAN CORPUSCULAR HGB CONC 33 g/dl (33.0-37.0); MEAN PLATELET VOLUME 10.4 fl (7.4-10.4); MONO # 1.1 K/mm3 (0.1-0.6); MONO % 9.6 % (1.7-9.3); PLATELET COUNT 308 K/mm3 (130-400); RED BLOOD COUNT 4.33 M/mm3 (4.10-5.30); REDCELL DISTRIBUTION WIDTH-CV 14.4 % (11.5-14.5)
[2023-11-21 22:10] LABS: TRICYCLIC ANTIDEPRESS URINE NEGATIVE (NEGATIVE)
[2023-11-21 22:16] LABS: ALANINE AMINOTRANSFERASE 12 U/L (0-55); ALBUMIN 3.7 g/dL (3.5-5.0); ALKALINE PHOSPHATASE 97 U/L (40-150); ANION GAP 14 mmol/L (7-16); AST,SGOT 24 U/L (5-34); BILIRUBIN,TOTAL 0.6 mg/dL (0.2-1.2); BLOOD UREA NITROGEN 18 mg/dL (7-19); CALCIUM 9.2 mg/dL (8.4-10.2); CHLORIDE 104 mEq/L (98-107); CREATININE, serum 0.89 mg/dL (0.57-1.11); GLUCOSE 75 mg/dL (70-99); POTASSIUM 5.3 mEq/L (3.5-4.5); SODIUM 138 mEq/L (136-145); TOTAL PROTEIN 7.1 g/dl (6.2-8.1)
[2023-11-21 22:19] LABS: ALCOHOL(ethanol),MEDICAL < 10 mg/dL (0-10); SALICYLATE < 5.0 mg/dL (15.0-30.0)
== END 2023-11-22 00:40 | disposition home or self-care (01) ==
LOC: COL.ER 20:16
PROVIDERS: Nurse Practitioner
DX: F15.10 Other stimulant abuse, uncomplicated (principal); F17.210 Nicotine dependence, cigarettes, uncomplicated; F17.290 Nicotine dependence, other tobacco product, uncomplicated

== ENCOUNTER 2024-01-13 15:59 | Emergency (ER) | payer SELFPAY ==
[2024-01-13 17:49] LABS: BASO # 0.1 K/mm3 (0.0-0.2); BASO % 0.5 % (0.0-2.0); EOS # 0.4 K/mm3 (0.0-0.7); EOS % 3.5 % (0.0-4.0); GRAN % 60.8 % (42.2-75.2); HEMATOCRIT 37.3 % (37.0-47.0); HEMOGLOBIN 12.1 g/dl (12.5-16.0); LYMPH # 2.8 K/mm3 (1.2-3.4); LYMPH % 24.2 % (20.0-51.0); MEAN CELL VOLUME 91 fl (80.0-100.0); MEAN CORPUSCULAR HEMOGLOBIN 30 pg (27-31); MEAN CORPUSCULAR HGB CONC 32 g/dl (33.0-37.0); MEAN PLATELET VOLUME 9.6 fl (7.4-10.4); MONO # 1.2 K/mm3 (0.1-0.6); MONO % 10.7 % (1.7-9.3); PLATELET COUNT 351 K/mm3 (130-400); RED BLOOD COUNT 4.09 M/mm3 (4.10-5.30); REDCELL DISTRIBUTION WIDTH-CV 13.7 % (11.5-14.5)
[2024-01-13 18:08] LABS: ALANINE AMINOTRANSFERASE 12 U/L (0-55); ALBUMIN 3.3 g/dL (3.5-5.0); ALKALINE PHOSPHATASE 84 U/L (40-150); ANION GAP 8 mmol/L (7-16); AST,SGOT 17 U/L (5-34); BILIRUBIN,TOTAL 1.2 mg/dL (0.2-1.2); BLOOD UREA NITROGEN 12 mg/dL (7-19); CALCIUM 9.5 mg/dL (8.4-10.2); CHLORIDE 107 mEq/L (98-107); CREATININE, serum 0.87 mg/dL (0.57-1.11); GLUCOSE 108 mg/dL (70-99); POTASSIUM 3.7 mEq/L (3.5-4.5); SODIUM 141 mEq/L (136-145); TOTAL PROTEIN 6.3 g/dl (6.2-8.1)
[2024-01-13 18:09] LABS: ALCOHOL(ethanol),MEDICAL < 10 mg/dL (0-10); SALICYLATE < 5.0 mg/dL (15.0-30.0)
[2024-01-13 22:02] LABS: COLLECTION METHOD CLEAN CATCH
[2024-01-13 22:12] LABS: PH 5.5 (5.0-8.5); URINE APPEARANCE CLOUDY (CLEAR/HAZY); URINE BLOOD NEGATIVE (NEGATIVE); URINE COLOR YELLOW (YELLOW); URINE GLUCOSE NEGATIVE (NEGATIVE); URINE KETONE 1+ (NEGATIVE); URINE NITRATE NEGATIVE (NEGATIVE); URINE PROTEIN(semi-quant) TRACE (NEGATIVE)
[2024-01-13 22:44] LABS: TRICYCLIC ANTIDEPRESS URINE NEGATIVE (NEGATIVE)
[2024-01-14] MEDS ORDERED: OLANZapine 5 MG TAB PO ONE (00:15)
--- NOTE | 2024-01-14 15:18 | NUR ---
liner worker was notified patient has court tomorrow morning at 10 am in [facility]. Patient's staff attorney is Lissa Diaz whom patient has been in contact with. Social work will follow up tomorrow.
--- NOTE | 2024-01-15 11:37 | NUR ---
Information Technology Instructor was consulted for patient who is in the ED and has a court proceeding scheduled for today at 1000 for a criminal case. [facility] representing [facility] who advised since patient is in the ED, the hearing will be rescheduled to 02/12/24 at 1000. DAVON provided this to ED RN who advised patient is awaiting voluntary psych placement. DAVON provided a [place] to [facility] [place] still in our ED at this time.
--- NOTE | 2024-01-15 16:19 | NUR ---
bin worker spoke with patient and confirmed patient is agreeable to treatment in [place], [place] and that [facility] will be able to pick patient up when she is discharged from that facility. Worker collaborated with data warehouse architect and ED nurse regarding the above information.
[2024-01-15 17:26] VITALS: BP 133/88; PULSE 71; TEMP 98.5
== END 2024-01-15 17:28 ==
LOC: COL.ER 15:59
PROVIDERS: Emergency Medicine
DX: F31.9 Bipolar disorder, unspecified (principal)